=== PATIENT | female | born 1990 | race Two or more races ===

== ENCOUNTER 2019-02-24 11:47 | Observation (INO) | payer MEDICAID ==
[2019-02-24] MEDS ORDERED: PREN-55 PO (12:36)
[2019-02-24] MEDS ORDERED: DEXT 5%/LACTATED RINGERS 1,000 ML IV SCH (12:38)
[2019-02-24 13:39] LABS: CHLORIDE 108 mEq/L (98-107)
[2019-02-24 13:54] LABS: CLARITY URINE TURBID (CLEAR); COLOR URINE YELLOW (YELLOW); KETONES URINE NEGATIVE (NEGATIVE); LEUKOCYTE ESTERASE URINE 2+ (NEGATIVE); NITRITE URINE NEGATIVE (NEGATIVE); OCCULT BLOOD URINE NEGATIVE (NEGATIVE); PH URINE 6.5 (4.5-8.0); PROTEIN URINE NEGATIVE (NEGATIVE); UROBILINOGEN URINE 0.2 E.U./dL (0.2-1.0)
== END 2019-02-24 15:59 | disposition home or self-care (01) ==
LOC: 8 EST LDRP 11:47
PROVIDERS: ADMIT Specialist; ATTEND Specialist
DX: O62.9 Abnormality of forces of labor, unspecified (principal); O99.613 Diseases of the digestive system complicating pregnancy, third trimester; R19.7 Diarrhea, unspecified; Z3A.34 34 weeks gestation of pregnancy
CPT/HCPCS: 36415; 80048; 81003; 99281; G0378; 96360; 96361; J7121

== ENCOUNTER 2019-04-02 20:26 | Observation (INO) | payer BC, MEDICAID, OTHER ==
[~2019-04-02] VITALS: Ht 157.5 cm; Wt 74.8 kg
[~2019-04-02 20:26] MED LIST: PREN-55 PO
[2019-04-02] MEDS ORDERED: BUTORPHANOL TARTRATE 2 MG/ML VIAL IV PRN (22:22)
[2019-04-02] MEDS ORDERED: LACTATED RINGERS 1,000 ML IV SCH (22:30)
[2019-04-02 22:31] LABS: BASOPHILS % 0.2 % (0.0-2.0); EOSINOPHILS % 0.8 % (0.0-5.0); HEMATOCRIT. 39.5 % (36.0-48.0); HEMOGLOBIN. 13.5 g/dL (12.0-16.0); LYMPHOCYTES % 12.2 % (20.0-50.0); MEAN CORPUSCULAR HEMOGLOBIN 32.8 pg (28.0-32.0); MEAN CORPUSCULAR VOLUME 95.5 fL (81.0-99.0); NEUTROPHILS % 80.8 % (40.0-76.0); PLATELET 153 x1000/uL (130-400); RED BLOOD CELL COUNT 4.13 mill/uL (4.2-5.4)
[2019-04-02 22:41] LABS: INR 0.9; PARTIAL THROMBOPLASTIN TIME 27.7 sec (23.4-31.0); PROTHROMBIN TIME 9.3 sec (9.6-11.0)
[2019-04-02 23:07] LABS: HEPATITIS B SURFACE ANTIGEN NEGATIVE
[2019-04-03] MEDS ORDERED: ROPIVACAINE HCL/PF EPIDURAL 200 ML EPI SCH (00:15)
[2019-04-03] MEDS ORDERED: DEXT 5%/LR + PITOCIN 20UNITS/L 1,000 ML IV ONE (03:30)
[2019-04-03] MEDS ORDERED: DEXT 5%/LR + PITOCIN 20UNITS/L 1,000 ML IV SCH (03:48)
[2019-04-03] MEDS ORDERED: ACETAMINOPHEN WITH CODEINE 300/30MG TABLET PO PRN (04:00)
[2019-04-03] MEDS ORDERED: LANOLIN OINT 7GM TUBE TOP PRN (04:00)
[2019-04-03] MEDS ORDERED: HEMORRHOIDAL SUPP PR PRN (04:00)
[2019-04-03] MEDS ORDERED: BENZOCAINE/LANOLIN/ALOE VERA SPRAY TOP PRN (04:00)
[2019-04-03] MEDS ORDERED: IBUPROFEN 400MG TABLET PO PRN (04:00)
[2019-04-03] MEDS ORDERED: DIPHENHYDRAMINE 25MG CAPSULE PO PRN (04:00)
[2019-04-03] MEDS ORDERED: RHO(D) IMMUNE GLOBULIN 300 MCG/SYR IM PRN (04:00)
[2019-04-03] MEDS ORDERED: GLYCERIN/WITCH HAZEL LEAF MEDICATED PAD TOP PRN (04:00)
[2019-04-03] MEDS ORDERED: TETANUS, DIPHTHERIA, PERTUSSIS VAC/PF 0.5ML (>7YR OLD) IM ONE (06:00)
[2019-04-03 07:30] VITALS: BP 100/52
[2019-04-03] MEDS: PRENATAL VIT/FE FUMARATE/FA TABLET PO SCH (08:56)
[2019-04-03] MEDS ORDERED: EPHEDRINE SULFATE 50MG/ML VIAL ONE (12:48)
[2019-04-03] MEDS: IBUPROFEN 800MG TABLET PO PRN ×3 (13:44→22:48)
[2019-04-03 14:30] VITALS: BP 102/62
[2019-04-03] MEDS ORDERED: DOCUSATE SODIUM 100MG CAPSULE PO SCH (21:00)
[2019-04-03] MEDS: MAGNESIUM/ALUMINUM HYDROXIDE/SIMETHICONE 30ML UDC PO SCH (21:00)
[2019-04-03 22:00] VITALS: BP 117/76
[2019-04-04 04:00] VITALS: BP 112/72
[2019-04-04 07:49] LABS: BASOPHILS % 0.2 % (0.0-2.0); HEMOGLOBIN. 11.6 g/dL (12.0-16.0); LYMPHOCYTES % 22.8 % (20.0-50.0); MEAN CORPUSCULAR HEMOGLOBIN 32.9 pg (28.0-32.0); MEAN CORPUSCULAR VOLUME 96.4 fL (81.0-99.0); MEAN PLATELET VOLUME 10.8 fl (7.4-10.4); MONOCYTES % 6.6 % (2.0-8.0); NEUTROPHILS % 68.4 % (40.0-76.0); PLATELET 137 x1000/uL (130-400); RED BLOOD CELL COUNT 3.53 mill/uL (4.2-5.4); RED CELL DISTRIBUTION WIDTH 14.3 % (11.6-14.6)
[2019-04-04 08:00] VITALS: BP 103/72
[2019-04-04] MEDS: FERROUS SULFATE 325MG TABLET PO SCH ×2 (09:25→14:03)
[2019-04-04] MEDS: PRENATAL VIT/FE FUMARATE/FA TABLET PO SCH (09:25)
[2019-04-04] MEDS: MAGNESIUM/ALUMINUM HYDROXIDE/SIMETHICONE 30ML UDC PO SCH ×2 (09:25→14:04)
[2019-04-04] MEDS: IBUPROFEN 800MG TABLET PO PRN (14:04)
== END 2019-04-04 15:45 | disposition home or self-care (01) ==
LOC: 8 EST LDRP 20:26 → 8EST 04-03 05:15
PROVIDERS: ADMIT Obstetrics & Gynecology; ATTEND Obstetrics & Gynecology
DX: O62.9 Abnormality of forces of labor, unspecified (principal); Z3A.39 39 weeks gestation of pregnancy
CPT/HCPCS: 36415; 85025; 85610; 85730; 86592; 86703; 86762; 86850; 86900; 86901; 87340; 90715; 99281; G0378; J0595; J2590; J2795; J7120; J3490